=== PATIENT | female | born 1980 | race African-American/Black ===

== ENCOUNTER 2019-03-28 05:10 | Day surgery (SDC) | payer OTHER | END 2019-03-28 15:38 | disposition home or self-care (01) | LOC: JASU-SURG 05:10 ==

== ENCOUNTER 2021-12-23 04:22 | Inpatient (IN) | payer OTHER ==
[2021-12-18 10:05] VITALS: BMI 23.7
[2021-12-23] MEDS ORDERED: HEPARIN NA (PORCINE) 5,000 UNITS/ML 1ML VIAL ONE (07:39)
[2021-12-23] MEDS ORDERED: FENTANYL CITRATE/PF 50 MCG/ML VIAL ONE ×7 (08:26→13:33)
[2021-12-23] MEDS ORDERED: MIDAZOLAM HCL 2 MG/2 ML SINGLE DOSE VIAL ONE ×4 (08:27→09:19)
[2021-12-23] MEDS ORDERED: ROCURONIUM BROMIDE 50 MG/5 ML SYRINGE ONE (08:27)
[2021-12-23] MEDS ORDERED: PROPOFOL 20 ML ONE ×4 (08:27→09:34)
[2021-12-23] MEDS ORDERED: HYDROmorphone HCl 2 MG/ML VIAL ONE (08:27)
[2021-12-23] MEDS ORDERED: BUPIVACAINE HCL/PF 0.5% (5MG/ML) 10 ML VIAL ONE ×2 (08:36→08:51)
[2021-12-23] MEDS ORDERED: BUPIVACAINE LIPOSOME/PF (EXPAREL) 266 MG/20 ML VIAL ONE (08:36)
[2021-12-23] MEDS ORDERED: ALBUTEROL SO4 HFA INHALER IH ONE ×2 (09:10→09:11)
[2021-12-23] MEDS ORDERED: ceFAZolin SODIUM 1 GM VIAL IVPB ONE (09:44)
[2021-12-23] MEDS ORDERED: TRANEXAMIC ACID 1000 MG/10 ML VIAL ONE (09:57)
[2021-12-23] MEDS ORDERED: KETOROLAC TROMETHAMINE 30 MG/1 ML VIAL ONE (09:57)
[2021-12-23] MEDS ORDERED: DEXAMETHASONE SOD PHOSPHATE 4 MG/1 ML VIAL ONE (09:57)
[2021-12-23] MEDS ORDERED: PHENYLEPHRINE HCL 10 MG/1 ML SINGLE DOSE VIAL ONE (09:57)
[2021-12-23] MEDS ORDERED: ceFAZolin SODIUM 1 GM VIAL ONE (09:57)
[2021-12-23] MEDS ORDERED: oxyCODONE HCL 5 MG TABLET PO PRN ×2 (12:22)
[2021-12-23] MEDS ORDERED: ONDANSETRON 4 MG/2 ML VIAL IVPUSH PRN (12:47)
[2021-12-23] MEDS ORDERED: ACETAMINOPHEN 1000 MG/100 ML BAG IVPB ONE ×2 (12:49→13:03)
[2021-12-23] MEDS ORDERED: LACTATED RINGERS SOLUTION 1,000 ML IV SCH (13:00)
[2021-12-23] MEDS ORDERED: LABETALOL HCL 5 MG/1 ML (100MG/20 ML VIAL) ONE (13:45)
[2021-12-23] MEDS ORDERED: LABETALOL HCL 5 MG/1 ML (100MG/20 ML VIAL) IVPUSH ONE ×2 (13:46→14:25)
[2021-12-23] MEDS: CEFAZOLIN 2 GM in DEXTROSE 5%-WATER - 100 ML IVPB SCH ×2 (17:42→19:35)
[2021-12-23] MEDS: SIMETHICONE 80 MG TAB.CHEW (FP) PO PRN (20:18)
[2021-12-23] MEDS: amLODIPine BESYLATE 5 MG TABLET (FP) PO SCH (20:19)
[2021-12-23] MEDS: ACETAMINOPHEN 325 MG TABLET (FP) PO PRN (20:19)
[2021-12-24] MEDS: ACETAMINOPHEN 325 MG TABLET (FP) PO PRN (01:44)
[2021-12-24] MEDS: SIMETHICONE 80 MG TAB.CHEW (FP) PO PRN ×3 (01:45→23:52)
[2021-12-24 07:58] LABS: HEMATOCRIT 35.8 % (32.4-45.2); MCH 30.5 pg (25.7-33.7); MCHC 33.6 g/dl (32.0-36.0); MEAN CELL VOLUME 90.8 fl (80-96); MEAN PLT VOLUME 7.9 fl (7.5-11.1); PLATELET COUNT 282 10^3/uL (134-434); RBC 3.94 M/mm3 (3.60-5.2); RDW 13.2 % (11.6-15.6); WHITE BLOOD COUNT 14.3 K/mm3 (4.0-10.0)
[2021-12-24] MEDS ORDERED: IBUPROFEN 800 MG/8 ML IJ IVPB ONE ×2 (08:45→09:30)
[2021-12-24] MEDS ORDERED: ACETAMINOPHEN 1000 MG/100 ML BAG IVPB ONE (09:13)
[2021-12-24] MEDS: amLODIPine BESYLATE 5 MG TABLET (FP) PO SCH (10:08)
[2021-12-24] MEDS: IBUPROFEN 600 MG TABLET (FP) PO SCH ×3 (12:07→23:52)
[2021-12-25] MEDS: IBUPROFEN 600 MG TABLET (FP) PO SCH (05:53)
[2021-12-25] MEDS: SIMETHICONE 80 MG TAB.CHEW (FP) PO PRN (05:53)
[2021-12-25] MEDS: amLODIPine BESYLATE 5 MG TABLET (FP) PO SCH (09:11)
[2021-12-25 10:48] VITALS: BP 152/77; PULSE 73; TEMP 97.8
== END 2021-12-25 12:00 | disposition home or self-care (01) | DRG 743 ==
LOC: J2C 04:22 → J3W 15:05
PROVIDERS: ADMIT Obstetrics & Gynecology; ATTEND Obstetrics & Gynecology
PROC: 0UB90ZZ Excision of Uterus, Open Approach (ICD-10-PCS; principal; 2021-12-23 09:00)
DX: D25.9 Leiomyoma of uterus, unspecified (principal); R11.10 Vomiting, unspecified
CPT/HCPCS: 36415; 81025; 85027; 88305-TC; 94010; 94760; J1644